=== PATIENT | female | born 1990 | race Caucasian/White ===

== ENCOUNTER 2017-11-15 07:41 | Day surgery (SDC) | payer OTHER ==
[~2017-11-15] VITALS: Ht 170.2 cm; Wt 64.4 kg
[2017-11-15] MEDS ORDERED: fentaNYL CITRATE/PF 100 MCG/2 ML AMP IVP ONE (10:10)
[2017-11-15] MEDS ORDERED: SEVOFLURANE 15 MIN GAS INH ONE (10:10)
[2017-11-15] MEDS ORDERED: LR 1,000 ML IV.SOLN IV ONE (10:10)
[2017-11-15] MEDS ORDERED: MIDAZOLAM HCL 5 MG/5 ML VIAL IVP ONE (10:10)
[2017-11-15] MEDS ORDERED: SILVER NITRATE APPLICATOR 1 STICK STICK..EA. TP ONE (10:10)
[2017-11-15] MEDS ORDERED: PROPOFOL 200MG/ 20ML VIAL (DIPRIVAN) IV ONE (10:10)
[2017-11-15] MEDS ORDERED: ONDANSETRON HCL 4 MG/2 ML VIAL IVP ONE (10:10)
[2017-11-15] MEDS ORDERED: KETOROLAC TROMETHAMINE 30 MG VIAL IVP ONE (10:10)
[2017-11-15] MEDS ORDERED: NS IRRIG SOLN 1000 ML IR ONE (10:10)
[2017-11-15] MEDS ORDERED: fentaNYL CITRATE/PF 100 MCG/2 ML AMP IVP PRN ×2 (11:00)
[2017-11-15] MEDS ORDERED: PROMETHAZINE HCL 25 MG/ML AMP IM PRN (11:00)
[2017-11-15] MEDS ORDERED: ONDANSETRON HCL 4 MG/2 ML VIAL IVP PRN (11:00)
[2017-11-15] MEDS ORDERED: OXYCODONE/ACETAMINOPHEN 5-325 TABLET PO PRN (11:00)
[2017-11-15] MEDS ORDERED: OXYCODONE/ACETAMINOPHEN 5-325 TABLET ONE (11:53)
[2017-11-15 12:34] VITALS: BP_SYST 118
== END 2017-11-15 13:15 | disposition home or self-care (01) ==
LOC: SDS 07:41 → SMU 07:42 → SDS 13:15
PROVIDERS: ATTEND Obstetrics & Gynecology
DX: N93.0 Postcoital and contact bleeding (principal); Z98.890 Other specified postprocedural states; Z88.8 Allergy status to other drugs, medicaments and biological substances; Z83.3 Family history of diabetes mellitus
CPT/HCPCS: 36415; 58558; 86886; 86900; 86901; 88305; J1885; J2250; J2405; J2704; J3010; J7120